=== PATIENT | female | born 1970 | race Caucasian/White ===

== ENCOUNTER 2017-11-23 17:26 | Emergency (ER) | payer MEDICAID ==
[~2017-11-23] VITALS: Ht 157.5 cm; Wt 77.0 kg
[2017-11-23 20:05] LABS: BASOPHILS % 0.8 % (0.0-2.0); EOSINOPHILS % 1.9 % (0.0-5.0); HEMATOCRIT. 36.8 % (36.0-48.0); HEMOGLOBIN. 12.1 g/dL (12.0-16.0); LYMPHOCYTES % 44.6 % (20.0-50.0); MEAN CORPUSCULAR HEMOGLOBIN 26.4 pg (28.0-32.0); MEAN CORPUSCULAR VOLUME 80.4 fL (81.0-99.0); MEAN PLATELET VOLUME 8.7 fl (7.4-10.4); MONOCYTES % 6.9 % (2.0-8.0); NEUTROPHILS % 45.8 % (40.0-76.0); PLATELET 352 x1000/uL (130-400); RED BLOOD CELL COUNT 4.58 mill/uL (4.2-5.4); RED CELL DISTRIBUTION WIDTH 14.9 % (11.6-14.6)
[2017-11-23 20:06] LABS: INR 0.9; PROTHROMBIN TIME 9.9 sec (9.4-11.6)
[2017-11-23 20:15] LABS: CARBON DIOXIDE 24 mEq/L (21-32); CHLORIDE 104 mEq/L (98-107); TROPONIN I < 0.02 ng/mL (0.00-0.04)
[2017-11-23 23:00] VITALS: BP 141/82
[2017-11-23] MEDS: POTASSIUM CHLORIDE 20MEQ TABLET SR PO ONE (23:12)
== END 2017-11-23 23:17 | disposition home or self-care (01) ==
LOC: ER 18:35
DX: J06.9 Acute upper respiratory infection, unspecified (principal); E83.51 Hypocalcemia; E11.9 Type 2 diabetes mellitus without complications; E78.00 Pure hypercholesterolemia, unspecified; E87.6 Hypokalemia; R07.9 Chest pain, unspecified; E86.0 Dehydration; I10 Essential (primary) hypertension; R74.0 Nonspecific elevation of levels of transaminase and lactic acid dehydrogenase [LDH]; R79.1 Abnormal coagulation profile; Z98.890 Other specified postprocedural states
CPT/HCPCS: 36415; 71010; 80053; 83036; 83880; 84484; 85025; 85610; 87040; 87070; 87430; 87804; 93005; 99285; Z7610

== ENCOUNTER 2019-08-18 15:34 | Emergency (ER) | payer SELFPAY ==
[~2019-08-18] VITALS: Ht 162.6 cm; Wt 69.0 kg
[2019-08-18] MEDS ORDERED: ACETAMINOPHEN 325MG TABLET PO ONE (16:30)
[2019-08-18 18:57] VITALS: BP 136/71
== END 2019-08-18 19:00 | disposition home or self-care (01) ==
LOC: ER 15:54
DX: S09.90XA Unspecified injury of head, initial encounter (principal); M54.9 Dorsalgia, unspecified; K59.00 Constipation, unspecified; E11.9 Type 2 diabetes mellitus without complications; I10 Essential (primary) hypertension; Z98.890 Other specified postprocedural states; Z87.09 Personal history of other diseases of the respiratory system; Z87.440 Personal history of urinary (tract) infections; W01.0XXA Fall on same level from slipping, tripping and stumbling without subsequent striking against object, initial encounter; Y93.89 Activity, other specified; Y92.89 Other specified places as the place of occurrence of the external cause; Y99.8 Other external cause status
CPT/HCPCS: 72100; 81025; 99283

== ENCOUNTER 2021-07-08 21:06 | Emergency (ER) | payer SELFPAY ==
[~2021-07-08] VITALS: Ht 157.5 cm; Wt 74.8 kg
[2021-07-08 21:31] VITALS: BP 111/71
[2021-07-08] MEDS ORDERED: OXYMETAZOLINE HCL NASAL SPRAY 15ML BOTHNSTRLS PRN (22:45)
[2021-07-08] MEDS ORDERED: ACETAMINOPHEN 325MG TABLET PO ONE (22:45)
[2021-07-08] MEDS ORDERED: ACET-2708 MT (23:02)
[2021-07-08] MEDS ORDERED: GUAI-450 MT (23:02)
[2021-07-08] MEDS ORDERED: SODI88SP18 BOTHNSTRLS (23:02)
== END 2021-07-08 23:47 | disposition home or self-care (01) ==
LOC: ER 22:07
DX: J32.9 Chronic sinusitis, unspecified (principal); E11.9 Type 2 diabetes mellitus without complications; Z79.899 Other long term (current) drug therapy
CPT/HCPCS: 99283

== ENCOUNTER 2023-10-14 13:33 | Emergency (ER) | payer OTHER ==
[~2023-10-14] VITALS: Ht 165.1 cm; Wt 69.0 kg
[~2023-10-14 13:33] MED LIST: ACET-2708 MT; FERR325T6 MT; GUAI-450 MT; IBUP-2030 MT; SODI88SP18 BOTHNSTRLS
[2023-10-14 13:45] VITALS: TEMP 98.7; O2SAT 99
[2023-10-14 14:00] VITALS: BP 176/77; PULSE 100; RESP 16
[2023-10-14] MEDS ORDERED: IBUPROFEN 600MG TABLET PO ONE (14:00)
== END 2023-10-14 16:15 | disposition home or self-care (01) ==
LOC: ER 13:40
DX: M79.672 Pain in left foot (principal); E11.9 Type 2 diabetes mellitus without complications
CPT/HCPCS: 73590; 73610; 73630; 29515; 99284; Z7610

== ENCOUNTER 2024-04-06 09:29 | Emergency (ER) | payer MEDICAID, OTHER ==
[~2024-04-06] VITALS: Ht 167.6 cm; Wt 81.0 kg
[~2024-04-06 09:29] MED LIST changes: -SODI88SP18 BOTHNSTRLS; +SODI90SP BOTHNSTRLS
[2024-04-06 09:40] VITALS: O2SAT 99
[2024-04-06] MEDS: ACETAMINOPHEN 325MG TABLET PO ONE (10:15)
[2024-04-06] MEDS: SODIUM CHLORIDE 0.9% 1,000 ML IV ONE (10:44)
[2024-04-06] MEDS: METOCLOPRAMIDE HCL 10MG/2ML VIAL IV ONE (10:44)
[2024-04-06 12:01] LABS: BASOPHILS % 0.6 % (0.0-2.0); EOSINOPHILS % 2.3 % (0.0-5.0); HEMATOCRIT. 37.4 % (36.0-48.0); HEMOGLOBIN. 12.4 g/dL (12.0-16.0); LYMPHOCYTES % 27.9 % (20.0-50.0); MEAN CORPUSCULAR HEMOGLOBIN 26.7 pg (28.0-32.0); MEAN CORPUSCULAR HGB CONC 33.2 g/dL (31.0-37.0); MEAN CORPUSCULAR VOLUME 80.4 fL (81.0-99.0); MEAN PLATELET VOLUME 8.5 fl (7.4-10.4); MONOCYTES % 6.4 % (2.0-8.0); NEUTROPHILS % 62.8 % (40.0-76.0); PLATELET 327 x1000/uL (130-400); RED BLOOD CELL COUNT 4.65 mill/uL (4.2-5.4); RED CELL DISTRIBUTION WIDTH 29.3 % (11.6-14.6); WHITE BLOOD COUNT 5.6 x1000/uL (4.5-11.0)
[2024-04-06 12:02] LABS: DIFFERENTIAL COMMENT 1
[2024-04-06 12:03] LABS: ADD RBC MORPHOLOGY YES
[2024-04-06 12:09] LABS: CHLORIDE 108 mEq/L (98-107); POTASSIUM 3.8 mEq/L (3.5-5.1); SODIUM 137 mEq/L (136-145)
[2024-04-06 12:10] LABS: CARBON DIOXIDE 25 mEq/L (21-32)
[2024-04-06 12:11] LABS: CALCIUM 8.7 mg/dL (8.7-10.4)
[2024-04-06 12:15] LABS: CREATININE 0.6 mg/dL (0.6-1.0); GLUCOSE 112 mg/dL (70-105); UREA NITROGEN BLOOD 9 mg/dL (9-23)
[2024-04-06 13:27] VITALS: BP 134/87; PULSE 83; RESP 20; TEMP 98.8
[2024-04-06 13:48] LABS: PLATELET ESTIMATE NORMAL
[2024-04-06 13:49] LABS: ANISOCYTOSIS 3+
== END 2024-04-06 13:28 | disposition home or self-care (01) ==
LOC: ER 09:29
DX: R51.9 Headache, unspecified (principal); E11.9 Type 2 diabetes mellitus without complications; Z98.890 Other specified postprocedural states
CPT/HCPCS: 99285; 96374; 70450; 96361; 80048; 85025; 36415; J2765; J7030

== ENCOUNTER 2024-10-02 17:50 | Emergency (ER) | payer MEDICAID ==
[~2024-10-02] VITALS: Ht 160 cm; Wt 72.6 kg
[2024-10-02 18:05] VITALS: O2SAT 100
[2024-10-02] MEDS ORDERED: IBUP-2029 MT (19:34)
[2024-10-02 19:40] VITALS: BP 161/85; PULSE 71; RESP 16; TEMP 36.72516; O2SAT 99
== END 2024-10-02 19:45 | disposition home or self-care (01) ==
LOC: ER 17:50
DX: S40.021A Contusion of right upper arm, initial encounter (principal); E11.9 Type 2 diabetes mellitus without complications; I10 Essential (primary) hypertension; Z98.890 Other specified postprocedural states; Z79.899 Other long term (current) drug therapy; Y08.89XA Assault by other specified means, initial encounter; Y93.89 Activity, other specified; Y92.89 Other specified places as the place of occurrence of the external cause; Y99.8 Other external cause status
CPT/HCPCS: 73060; 99283